=== PATIENT | female | born 1940 | race Caucasian/White ===

== ENCOUNTER 2021-08-28 09:15 | Inpatient (IN) | payer MEDICARE, OTHER ==
[~2021-08-28] VITALS: Ht 154.9 cm; Wt 52.2 kg
[2021-08-28 10:11] LABS: HEMOGLOBIN 12.9 gm/dl (12.3-15.3); RED BLOOD COUNT 4.12 M/UL (4.00-5.10); WHITE BLOOD COUNT 6.7 K/UL (4.5-11.0)
[2021-08-28 10:41] LABS: BUN/CREATININE RATIO 24 (0-10)
[2021-08-28] MEDS ORDERED: LEVOTHYROXINE88 MCG PO (17:14)
[2021-08-28] MEDS ORDERED: MULTIVITAMIN1 EACH PO (17:15)
[2021-08-28] MEDS ORDERED: CALCIUM ACETAT667 M2 PO (17:15)
[2021-08-29 03:41] LABS: HEMOGLOBIN 12.5 gm/dl (12.3-15.3); WHITE BLOOD COUNT 7.7 K/UL (4.5-11.0)
[2021-08-29 04:09] LABS: BUN/CREATININE RATIO 16 (0-10)
[2021-08-29] MEDS ORDERED: ATORVASTATIN CA20 MG PO (14:26)
[2021-08-29] MEDS ORDERED: ASPIRIN EC81 MG PO (14:26)
[2021-08-29] MEDS ORDERED: BRILINTA 90 MG90 MG PO (14:26)
[2021-08-29] MEDS ORDERED: NITROGLYCERIN0.4 MG SL (14:26)
== END 2021-08-29 16:14 | disposition home or self-care (01) | DRG 247 ==
LOC: ER1 09:15 → CDU 11:53 → PROG CARE 11:53
PROVIDERS: Physician Assistant; Student in an Organized Health Care Education/Training Program; ADMIT Internal Medicine Infectious Disease
PROC: B2111ZZ Fluoroscopy of Multiple Coronary Arteries using Low Osmolar Contrast (ICD-10-PCS; 2021-08-28)
PROC: 027034Z Dilation of Coronary Artery, One Artery with Drug-eluting Intraluminal Device, Percutaneous Approach (ICD-10-PCS; principal; 2021-08-29)
PROC: 4A023N7 Measurement of Cardiac Sampling and Pressure, Left Heart, Percutaneous Approach (ICD-10-PCS; 2021-08-29)
PROC: B24BZZ4 Ultrasonography of Heart with Aorta, Transesophageal (ICD-10-PCS; 2021-08-29)
PROC: B2151ZZ Fluoroscopy of Left Heart using Low Osmolar Contrast (ICD-10-PCS; 2021-08-29)
DX: I21.4 Non-ST elevation (NSTEMI) myocardial infarction (principal); E03.9 Hypothyroidism, unspecified; Z20.822 Contact with and (suspected) exposure to COVID-19; I95.9 Hypotension, unspecified; I08.3 Combined rheumatic disorders of mitral, aortic and tricuspid valves; I27.20 Pulmonary hypertension, unspecified; I25.5 Ischemic cardiomyopathy; Z79.82 Long term (current) use of aspirin; Z90.49 Acquired absence of other specified parts of digestive tract; Z88.2 Allergy status to sulfonamides; Z82.49 Family history of ischemic heart disease and other diseases of the circulatory system
CPT/HCPCS: ECHO; 36415; 71045; 80053; 80061; 82550; 82553; 83874; 84443; 84484; 85025; 93005; 93306; 99152; 99153; 99285; C1725; C1769; C1874; C1887; C9600; J0583; J1644; J2250; J7040; Q9967; U0002